=== PATIENT | female | born 2005 | race Caucasian/White ===

== ENCOUNTER 2025-04-11 01:22 | Emergency (ER) | payer SELFPAY ==
[~2025-04-11] VITALS: Ht 149.9 cm; Wt 50.0 kg
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
[2025-04-11] MEDS: ibuprofen tablet 400 MG TABLET PO ONE (03:22)
[2025-04-11] MEDS: acetaminophen 325mg tablet PO ONE (03:23)
[2025-04-11 03:24] VITALS: BP 100/96; PULSE 87; RESP 19; TEMP 98.1; O2SAT 100
== END 2025-04-11 03:25 | disposition home or self-care (01) ==
LOC: ER 01:23 → EDBD 01:23 → ER 03:25
DX: R41.9 Unspecified symptoms and signs involving cognitive functions and awareness (principal); F43.0 Acute stress reaction
CPT/HCPCS: 99283